=== PATIENT | female | born 1945 | race Caucasian/White ===

== ENCOUNTER → 2019-02-15 | Outpatient (CLI) | payer OTHER ==
[~2019-02-15] VITALS: Ht 160 cm; Wt 81.6 kg
[~2019-02-15] MED LIST: ASPIRIN325 PO; CRESTOR20 MG PO; GREEN COFFEE B400 MG PO; ICAPS AREDS FO1 EACH PO; LEVAQUIN 250 M250 MG PO; LISINOPRIL10 MG PO; LISINOPRIL40 MG PO; LITE COAT ASPI325 MG PO; MEDROL8 MG PO; PLAVIX 75 MG TA75 M1 PO; PRAVASTATIN SOD40 MG PO; PREDNISONE 5 MG5 M1 PO; PREVASTATIN; PROAIR HFA8.5 GM INH; VITAMIN D1000 UNI1 PO
[2019-02-15 07:28] VITALS: BP 122/61
[2019-02-15 07:33] LABS: HEMATOCRIT 45.1 % (37.0-47.0); HEMOGLOBIN 14.7 gm/dL (12.0-15.0); MCH 28.8 pg (26.0-34.0); MCHC 32.7 g/dL (28.0-37.0); RBC 5.12 mil/uL (4.20-5.00); WBC 6.7 thou/uL (4.0-11.0)
[2019-02-15 07:39] LABS: CALCIUM 9.6 mg/dL (8.5-10.1); CREATININE 0.8 mg/dL (0.6-1.0); POTASSIUM 4.6 mmol/L (3.5-5.1)
--- NOTE | 2019-02-15 08:22 | EKG ---
[address] [address] ELECTROCARDIOGRAM REPORT Name: CESAR SANDY [id number] ������������������ Admission: 02/15/19 ������������������ Attend Phys: Bharat Nolasco MD Discharge: ������������������ Date of : 49 Report #: [id number] ����������������������������������������������������������������� [id number] THIS REPORT FOR: //name// [facility] Test Date: 2019-02-15 Test Time: 07:24:53 Pat Name: CESAR SANDY Department: Room: Gender: F Legislative Correspondent: Kelby FOSTER : 1945 Requested By: Bharat Nolasco Order Number: [id number] MD: Mart Nicole Measurements Intervals [place] Rate: 87 P: 67 [place]: 190 QRS: 36 QRSD: 85 T: 65 QT: 381 QTc: 459 Interpretive Statements Sinus rhythm Probable left atrial enlargement Compared to ECG 01/07/2013 07:54:40 ST (T wave) deviation no longer present Electronically Signed On 02-15-2019 8:22:02 CDT by Mart Nicole [email or web address] ��������������������������������������������� <ELECTRONICALLY SIGNED> ���������������������������������������� By: Mart Nicole MD ��������������������������������������������� 02/15/19821 3 3 Mart Nicole MD /VINCENT
--- NOTE | 2019-02-15 17:48 | CATHLAB ---
[facility] [place] [address] INVASIVE PROCEDURE REPORT Name: CESAR SANDY Room #: REG [facility]#: [id number] ������������� Admission: 02/15/19 ������������� Attend Phys: Bharat Nolasco, Discharge: ��� ������������� ��� Date of : 49 Date of Service: 02/15/19 1748 �� Report #: [id number] �������� ��������������������������������������������[id number] THIS REPORT FOR: //name// APPROVED REPORT Study performed: 02/15/2019 09:59:36 Patient Details The patient is a 73 year-old female Event Personnel Adalberto Navarro Machine Rigger, Cass Benavides RN RN, Alejandra Humphreys Procedures Performed Left Heart Cath w/LT [facility] [id number] [facility] Indication Chest pain Procedure Narrative A 6F 11CM BRITE-TIP sheath was inserted into the LFA^. Coronary angiography was performed using coronary diagnostic catheters. The right coronary system was accessed and visualized with a JR4 catheter. The left coronary system was accessed and visualized with a JL4 catheter. The left ventricle was accessed and visualized with a PIGTAIL catheter. Closure device was deployed with a Fr 6F Fish closure. Hemostasis was obtained with manual pressure following sheath removal without any complications. The patient tolerated the procedure well and there were no complications associated with the procedure. There was no hematoma. Intraoperative Conscious Sedation Sedation start time: 8 Case end Time: 1330 Fluoro Time: 1.39 minutes Dose: DAP 2355.71 cGycm2 271 mGy Contrast Type and Amount: Visipaque 180 ml Hemodynamics The aortic pressure is 157/62 mmHg with a mean of 101 mmHg. The left ventricular pressure is 162/13 mmHg with a mean of mmHg. The left ventricular end diastolic pressure is 23 mmHg. PCI Technique [facility] [address] [place] [address] INVASIVE PROCEDURE REPORT Name: CESAR SANDY Room #: [facility]#: [id number] ������������� Admission: 02/15/19 ������������� Attend Phys: Bharat Nolasco, Discharge: ��� ������������� ��� Date of : 49 Date of Service: 02/15/19 1748 �� Report #: [id number] �������� ��������������������������������������������[id number] Percutaneous coronary intervention was performed on the Common iliac. Conclusion #1 normal left ventricular size and systolic function EF 60% no wall motion abnormality #2 left main moderate size mildly calcified giving rise to LAD and circumflex. No occlusive disease. #3 proximal LAD with previously placed stent has mild in-stent restenosis mild to moderate disease after the stent although not occlusive and diffusely diseased around the apex. No indication for intervention #4 circumflex OM is dominant vessel with mild irregularities in proximal calcification no significant stenosis #4 small nondominant right coronary with mild irregularity Recommendations and plan continue aggressive risk factor modification. Follow post peripheral stent protocol. See Dr. Nolasco's dictation for peripheral intervention. ��������������������������������������������� <ELECTRONICALLY SIGNED> ���������������������������������������� By: Adalberto Navarro MD, [facility] ��������������������������������������������� 02/15/191747 [birth year] Adalberto Navarro MD, [facility] /INF
== END | disposition home or self-care (01) ==
LOC: CATH 06:52
PROVIDERS: Nuclear Medicine Nuclear Cardiology
DX: I70.213 Atherosclerosis of native arteries of extremities with intermittent claudication, bilateral legs (principal); I25.10 Atherosclerotic heart disease of native coronary artery without angina pectoris; T82.855A Stenosis of coronary artery stent, initial encounter; I70.1 Atherosclerosis of renal artery; I10 Essential (primary) hypertension; E78.5 Hyperlipidemia, unspecified; E78.00 Pure hypercholesterolemia, unspecified; F17.210 Nicotine dependence, cigarettes, uncomplicated; Z95.5 Presence of coronary angioplasty implant and graft; Z90.49 Acquired absence of other specified parts of digestive tract; Z90.710 Acquired absence of both cervix and uterus; Z79.899 Other long term (current) drug therapy; Z79.82 Long term (current) use of aspirin

== ENCOUNTER → 2019-11-26 | Outpatient (CLI) | payer OTHER | LOC: SJCVCIMAG 08:12 | DX: I71.4 Abdominal aortic aneurysm, without rupture (principal); I70.203 Unspecified atherosclerosis of native arteries of extremities, bilateral legs; I25.41 Coronary artery aneurysm; I10 Essential (primary) hypertension; E78.00 Pure hypercholesterolemia, unspecified; F17.210 Nicotine dependence, cigarettes, uncomplicated; Z72.89 Other problems related to lifestyle; Z95.820 Peripheral vascular angioplasty status with implants and grafts ==

== ENCOUNTER → 2019-11-29 | Outpatient (CLI) | payer OTHER ==
[~2019-11-29] VITALS: Ht 160 cm; Wt 81.6 kg
[2019-11-29 10:12] LABS: HEMOGLOBIN 13.7 gm/dL (12.0-15.0); MCH 27.6 pg (26.0-34.0); MCHC 32.5 g/dL (28.0-37.0); MCV 84.8 fL (80.0-100.0); RBC 4.95 mil/uL (4.20-5.00); RDW 14.5 % (10.5-14.5); WBC 11.9 thou/uL (4.0-11.0)
--- NOTE | 2019-11-29 10:19 | NUR ---
PT PRE-MEDICATED FOR ALLERGY TO IODINE.
[2019-11-29 10:23] LABS: CALCIUM 9.8 mg/dL (8.5-10.1); CREATININE 0.9 mg/dL (0.6-1.0); POTASSIUM 4.1 mmol/L (3.5-5.1)
== END | disposition home or self-care (01) ==
LOC: CATH 09:26
PROVIDERS: Nuclear Medicine Nuclear Cardiology
DX: I70.211 Atherosclerosis of native arteries of extremities with intermittent claudication, right leg (principal); I70.1 Atherosclerosis of renal artery; I10 Essential (primary) hypertension; I25.10 Atherosclerotic heart disease of native coronary artery without angina pectoris; J44.9 Chronic obstructive pulmonary disease, unspecified; E78.00 Pure hypercholesterolemia, unspecified; F17.210 Nicotine dependence, cigarettes, uncomplicated; Z98.890 Other specified postprocedural states; Z79.899 Other long term (current) drug therapy; Z79.82 Long term (current) use of aspirin; Z90.710 Acquired absence of both cervix and uterus; Z90.49 Acquired absence of other specified parts of digestive tract

== ENCOUNTER → 2020-02-26 | Outpatient (CLI) | payer OTHER | LOC: SJCVCIMAG 14:18 | DX: I65.23 Occlusion and stenosis of bilateral carotid arteries (principal); I25.10 Atherosclerotic heart disease of native coronary artery without angina pectoris; I73.9 Peripheral vascular disease, unspecified; I77.1 Stricture of artery; I71.4 Abdominal aortic aneurysm, without rupture; I10 Essential (primary) hypertension; E78.00 Pure hypercholesterolemia, unspecified; Z95.820 Peripheral vascular angioplasty status with implants and grafts ==